=== PATIENT | male | born 1990 | race American Indian/Alaskan Native ===

== ENCOUNTER 2017-07-03 04:42 | Emergency (ER) | payer OTHER ==
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
[2017-07-03] MEDS ORDERED: DIPRIVAN 10 MG/ML IV ONE (08:05)
[2017-07-03] MEDS ORDERED: DILAUDID ONE (08:06)
[2017-07-03] MEDS ORDERED: XYLOCAINE MPF 2% ONE (08:06)
[2017-07-03] MEDS: FLEXERIL PO ONE (08:49)
[2017-07-03] MEDS: NACL 0.9% IR ONE (08:50)
[2017-07-03] MEDS: NORCO 5/325 PO ONE (08:50)
[2017-07-03] MEDS: XYLOCAINE 1% MPF 5 mL INFILTRATI ONE (08:51)
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
[2017-07-03 10:58] VITALS: BP 126/75
== END 2017-07-03 11:46 | disposition home or self-care (01) ==
LOC: ED 04:42
DX: S01.511A Laceration without foreign body of lip, initial encounter (principal); M54.5 Low back pain; M54.2 Cervicalgia; V49.49XA Driver injured in collision with other motor vehicles in traffic accident, initial encounter; Y93.9 Activity, unspecified; Y92.9 Unspecified place or not applicable; Y99.9 Unspecified external cause status
CPT/HCPCS: 70450; 72125; 72131; J1170; J2704